=== PATIENT | female | born 1975 | race Caucasian/White ===

== ENCOUNTER 2017-04-21 12:47 | Emergency (ER) | payer OTHER ==
[~2017-04-21] VITALS: Ht 162.5 cm; Wt 49.9 kg
[~2017-04-21 12:47] MED LIST: AMOXICILLIN500 MG PO; ATARAX,VISTARIL50 MG PO; BACTRIM DS 8001 TA1 PO; BACTRIM DS 8001 TAB PO; BUSPAR5 MG PO; CARBIDOPA/LEVOD1 TA1 PO; CLINDAMYCIN HC300 MG PO; DIFLUCAN150 MG PO; FLONASE 0.05% 121 EA NAS; HYDROXYZINE PAM50 MG PO; LITHIUM CARBON300 MG PO; LITHIUM8 MEQ/5 ML PO; MOTRIN800 MG PO; ONDANSETRON HYDR4 M1 PO; PROZAC10 MG PO; PROZAC40 M1 PO; PYRIDIUM200 MG PO; SEROQUEL XR300 MG PO; SEROQUEL XR400 MG PO; SEROQUEL XR50 MG PO; SEROQUEL300 MG PO; SEROQUEL50 MG PO; SERTRALINE HYDR50 MG PO; ULTRAM50 MG PO; VICODIN 5/500 505 MG PO; ZOFRAN ODT4 MG SL; ZOFRAN4 MG PO
[2017-04-21 13:15] VITALS: BP 109/72
[2017-04-21] MEDS ORDERED: NEURONTIN300 MG PO (13:15)
[2017-04-21] MEDS ORDERED: ARIPIPRAZOLE15 MG PO (13:15)
== END 2017-04-21 13:36 | disposition left against medical advice (07) ==
LOC: ED 12:47
DX: R42 Dizziness and giddiness (principal); J02.9 Acute pharyngitis, unspecified; R51 Headache; Z53.21 Procedure and treatment not carried out due to patient leaving prior to being seen by health care provider

== ENCOUNTER 2017-08-17 20:01 | Emergency (ER) | payer OTHER ==
[~2017-08-17] VITALS: Ht 162.5 cm; Wt 59.0 kg
[~2017-08-17 20:01] MED LIST changes: +ARIPIPRAZOLE15 MG PO; +NEURONTIN300 MG PO
[2017-08-17 20:34] LABS: BASO % 0.4 % (0.0-1.0); EOS # 0.1 10*3/uL (0.0-0.4); EOS % 1.3 % (1.0-4.0); HEMATOCRIT 40.1 % (37.0-47.0); HEMOGLOBIN 12.5 g/dl (12.0-16.0); LYMPH # 2.5 10*3/uL (1.3-4.4); LYMPH % 23.9 % (27.0-41.0); MEAN CELL VOLUME 96.4 fl (81.0-99.0); MEAN CORPUSCULAR HGB CONC 31.2 g/dl (33.0-37.0); MEAN PLATELET VOLUME 9.5 fl (9.6-12.3); MONO # 0.6 10*3/uL (0.1-1.0); MONO % 5.7 % (3.0-9.0); NEUT # 7.1 10*3/uL (2.3-7.9); NEUT % 68.5 % (47.0-73.0); PLATELET COUNT AUTOMATED 323 10*3/uL (130-400); RED BLOOD COUNT 4.16 10*6/uL (4.10-5.10); RED CELL DISTRI WIDTH 13.9 % (0-14.5); WHITE BLOOD COUNT 10.4 10*3/uL (4.8-10.8)
[2017-08-17 20:49] LABS: ALBUMIN 3.5 gm/dl (3.1-4.5); ALKALINE PHOSPHATASE 75 U/L (45-117); BUN 7 mg/dl (7-24); CHLORIDE 106 mmol/L (98-107); POTASSIUM 4.4 mmol/L (3.5-5.1); SGOT/AST 11 IU/L (3-35); SGPT/ALT 10 U/L (12-78); SODIUM 141 mmol/L (136-145); TOTAL PROTEIN 7.4 gm/dL (6.4-8.2)
[2017-08-17 22:02] VITALS: BP 108/57
[2017-08-17] MEDS ORDERED: CLINDAMYCIN HC300 MG PO (23:03)
== END 2017-08-17 23:03 | disposition left against medical advice (07) ==
LOC: ED 20:01
PROVIDERS: Emergency Medicine
DX: L03.211 Cellulitis of face (principal); K04.7 Periapical abscess without sinus; E03.9 Hypothyroidism, unspecified; M06.9 Rheumatoid arthritis, unspecified; F17.200 Nicotine dependence, unspecified, uncomplicated; F14.10 Cocaine abuse, uncomplicated; F11.10 Opioid abuse, uncomplicated; Z88.5 Allergy status to narcotic agent; Z88.8 Allergy status to other drugs, medicaments and biological substances; Z88.6 Allergy status to analgesic agent; Z79.899 Other long term (current) drug therapy

== ENCOUNTER → 2018-08-20 | Outpatient (CLI) | payer OTHER ==
[~2018-08-20] MED LIST changes: +IBUPROFEN600 MG PO; +NAPROSYN500 MG PO; +PENICILLIN VK500 MG PO
[2018-08-20 13:11] LABS: BASO % 0.3 % (0.0-1.0); EOS # 0.1 10*3/uL (0.0-0.4); EOS % 0.5 % (1.0-4.0); HEMATOCRIT 38.7 % (37.0-47.0); HEMOGLOBIN 12.3 g/dl (12.0-16.0); LYMPH # 1.3 10*3/uL (1.3-4.4); LYMPH % 12.1 % (27.0-41.0); MEAN CELL VOLUME 96.3 fl (81.0-99.0); MEAN CORPUSCULAR HGB 30.6 pg (27.0-31.0); MEAN CORPUSCULAR HGB CONC 31.8 g/dl (33.0-37.0); MEAN PLATELET VOLUME 9.8 fl (9.6-12.3); MONO # 0.4 10*3/uL (0.1-1.0); MONO % 3.4 % (3.0-9.0); NEUT # 8.6 10*3/uL (2.3-7.9); NEUT % 83.4 % (47.0-73.0); PLATELET COUNT AUTOMATED 256 10*3/uL (130-400); RED BLOOD COUNT 4.02 10*6/uL (4.10-5.10); RED CELL DISTRI WIDTH 13.5 % (0-14.5); WHITE BLOOD COUNT 10.3 10*3/uL (4.8-10.8)
[2018-08-20 13:38] LABS: ALBUMIN 3.7 gm/dl (3.1-4.5); ALKALINE PHOSPHATASE 69 U/L (45-117); BUN 10 mg/dl (7-24); CHLORIDE 109 mmol/L (98-107); CREATININE 0.71 mg/dL (0.55-1.02); POTASSIUM 3.8 mmol/L (3.5-5.1); SGOT/AST 15 IU/L (3-35); SGPT/ALT 17 U/L (12-78); SODIUM 144 mmol/L (136-145); TOTAL PROTEIN 7.1 gm/dL (6.4-8.2)
[2018-08-20 13:46] LABS: THYROID STIM HORMONE (HS) 0.697 uIU/ml (0.358-4.75); THYROXINE (T4) TOTAL 7.1 ug/dl (4.8-13.9)
[2018-08-21 05:06] LABS: HEPATITIS B SURFACE AG Negative (Negative); HEPATITIS C VIRUS ANTIBODY 6.2 s/co (0.0-0.9)
== END | disposition home or self-care (01) ==
LOC: LAB 12:15
PROVIDERS: Nurse Practitioner Family
DX: E03.8 Other specified hypothyroidism (principal); F11.10 Opioid abuse, uncomplicated

== ENCOUNTER 2019-06-24 12:08 | Emergency (ER) | payer OTHER ==
[~2019-06-24] VITALS: Ht 162.5 cm; Wt 59.0 kg
[2019-06-24] MEDS ORDERED: Motrin,Rufen800 MG PO (13:34)
== END 2019-06-24 12:36 | disposition home or self-care (01) ==
LOC: ED 12:08
DX: M25.511 Pain in right shoulder (principal); Z88.5 Allergy status to narcotic agent; Z88.8 Allergy status to other drugs, medicaments and biological substances; Z79.899 Other long term (current) drug therapy; Z79.2 Long term (current) use of antibiotics

== ENCOUNTER 2019-09-24 22:00 | Emergency (ER) | payer OTHER ==
[~2019-09-24 22:00] MED LIST changes: +Motrin,Rufen800 MG PO
[2019-09-24 22:12] VITALS: BP 140/86
== END 2019-09-24 22:45 | disposition home or self-care (01) ==
LOC: ED 22:00
DX: B34.9 Viral infection, unspecified (principal); F42.4 Excoriation (skin-picking) disorder; Z88.8 Allergy status to other drugs, medicaments and biological substances; Z88.5 Allergy status to narcotic agent

== ENCOUNTER 2019-10-18 21:34 | Emergency (ER) | payer OTHER ==
[~2019-10-18] VITALS: Ht 162.5 cm; Wt 56.7 kg
[2019-10-18 21:48] VITALS: BP 123/76
[2019-10-18] MEDS ORDERED: FLUOXETINE HYDR20 M1 PO (21:49)
[2019-10-18] MEDS ORDERED: TRAZODONE100 MG PO (21:49)
[2019-10-18] MEDS ORDERED: OXCARBAZEPINE300 M1 PO (21:50)
[2019-10-18] MEDS ORDERED: IBUPROFEN600 MG PO (22:17)
[2019-10-18] MEDS ORDERED: DOXYCYCLINE100 M3 PO (22:17)
== END 2019-10-18 22:37 | disposition home or self-care (01) ==
LOC: ED 21:34
DX: L02.411 Cutaneous abscess of right axilla (principal); L73.2 Hidradenitis suppurativa

== ENCOUNTER 2020-01-01 08:35 | Emergency (ER) | payer OTHER ==
[~2020-01-01] VITALS: Ht 162.5 cm; Wt 56.7 kg
[~2020-01-01 08:35] MED LIST changes: +DOXYCYCLINE100 M3 PO; +FLUOXETINE HYDR20 M1 PO; +OXCARBAZEPINE300 M1 PO; +TRAZODONE100 MG PO
[2020-01-01 08:42] VITALS: BP 137/78
[2020-01-01] MEDS ORDERED: AMOXICILLIN500 M2 PO (09:09)
[2020-01-01] MEDS ORDERED: Motrin,Rufen800 MG PO (09:09)
[2020-01-01] MEDS ORDERED: CLINDAMYCIN HC300 MG PO (09:09)
== END 2020-01-01 09:33 | disposition home or self-care (01) ==
LOC: ED 08:35
DX: K04.7 Periapical abscess without sinus (principal); L02.412 Cutaneous abscess of left axilla; J32.9 Chronic sinusitis, unspecified; K21.9 Gastro-esophageal reflux disease without esophagitis; F32.9 Major depressive disorder, single episode, unspecified; G43.909 Migraine, unspecified, not intractable, without status migrainosus; Z88.8 Allergy status to other drugs, medicaments and biological substances; Z79.899 Other long term (current) drug therapy

== ENCOUNTER → 2020-03-06 | Outpatient (CLI) | payer OTHER ==
[~2020-03-06] MED LIST changes: +AMOXICILLIN500 M2 PO
== END | disposition home or self-care (01) ==
LOC: COVID19 11:28
PROVIDERS: ATTEND Student in an Organized Health Care Education/Training Program
DX: U07.1 COVID-19 (principal)

== ENCOUNTER 2020-04-20 08:46 | Emergency (ER) | payer OTHER ==
[~2020-04-20] VITALS: Wt 61.2 kg
[2020-04-20 08:59] VITALS: BP 141/76
[2020-04-20] MEDS ORDERED: IBUPROFEN600 MG PO (09:36)
[2020-04-20] MEDS ORDERED: SEPTDS PO (09:36)
[2020-04-20] MEDS ORDERED: FLONASE ALLERG9.9 ML NAS (09:36)
== END 2020-04-20 10:03 | disposition home or self-care (01) ==
LOC: ED 08:46
DX: J32.9 Chronic sinusitis, unspecified (principal); K21.9 Gastro-esophageal reflux disease without esophagitis; G43.909 Migraine, unspecified, not intractable, without status migrainosus; F31.9 Bipolar disorder, unspecified; F17.200 Nicotine dependence, unspecified, uncomplicated; Z88.8 Allergy status to other drugs, medicaments and biological substances; Z98.890 Other specified postprocedural states

== ENCOUNTER → 2020-04-27 | Outpatient (CLI) | payer OTHER ==
[~2020-04-27] MED LIST changes: +FLONASE ALLERG9.9 ML NAS; +SEPTDS PO
== END | disposition home or self-care (01) ==
LOC: COVID19 10:40
PROVIDERS: ATTEND Internal Medicine
DX: Z20.822 Contact with and (suspected) exposure to COVID-19 (principal)

== ENCOUNTER 2020-05-18 09:23 | Emergency (ER) | payer OTHER ==
[~2020-05-18] VITALS: Ht 160 cm; Wt 63.5 kg
[2020-05-18 09:28] VITALS: BP 131/82
[2020-05-18] MEDS ORDERED: CLINDAMYCIN HC300 MG PO (09:48)
== END 2020-05-18 09:50 | disposition home or self-care (01) ==
LOC: ED 09:23
DX: K04.7 Periapical abscess without sinus (principal); F17.200 Nicotine dependence, unspecified, uncomplicated; F14.10 Cocaine abuse, uncomplicated; Z90.710 Acquired absence of both cervix and uterus; Z98.890 Other specified postprocedural states; Z88.5 Allergy status to narcotic agent; Z88.6 Allergy status to analgesic agent; Z88.8 Allergy status to other drugs, medicaments and biological substances

== ENCOUNTER 2020-07-13 08:52 | Emergency (ER) | payer OTHER ==
[~2020-07-13] VITALS: Ht 160 cm; Wt 59.0 kg
[2020-07-13 08:56] VITALS: BP 127/81
[2020-07-13] MEDS ORDERED: FLONASE ALLERG9.9 ML NAS (09:11)
[2020-07-13] MEDS ORDERED: AUGMENTIN 875875 MG PO (09:11)
== END 2020-07-13 09:18 | disposition home or self-care (01) ==
LOC: ED 08:52
DX: J32.1 Chronic frontal sinusitis (principal); Z20.822 Contact with and (suspected) exposure to COVID-19; J32.0 Chronic maxillary sinusitis; H92.02 Otalgia, left ear; F17.200 Nicotine dependence, unspecified, uncomplicated; Z88.8 Allergy status to other drugs, medicaments and biological substances; Z88.1 Allergy status to other antibiotic agents; Z88.5 Allergy status to narcotic agent; Z79.899 Other long term (current) drug therapy; Z79.2 Long term (current) use of antibiotics; Z90.89 Acquired absence of other organs; Z90.711 Acquired absence of uterus with remaining cervical stump

== ENCOUNTER 2020-11-03 21:41 | Emergency (ER) | payer MEDICAID ==
[~2020-11-03] VITALS: Ht 160 cm; Wt 59.0 kg
[~2020-11-03 21:41] MED LIST changes: +AUGMENTIN 875875 MG PO
[2020-11-03 22:28] VITALS: BP 111/68
== END 2020-11-04 00:30 | disposition left against medical advice (07) ==
LOC: ED 21:41
DX: R09.81 Nasal congestion (principal); Z53.21 Procedure and treatment not carried out due to patient leaving prior to being seen by health care provider

== ENCOUNTER 2022-12-16 17:52 | Emergency (ER) | payer SELFPAY ==
[~2022-12-16] VITALS: Wt 56.7 kg
[2022-12-16 17:58] VITALS: BP 126/90
[2022-12-16] MEDS ORDERED: SEPTDS PO (18:39)
== END 2022-12-16 20:03 | disposition home or self-care (01) ==
LOC: ED 17:52
DX: S93.402A Sprain of unspecified ligament of left ankle, initial encounter (principal); L03.011 Cellulitis of right finger; S09.90XA Unspecified injury of head, initial encounter; K21.9 Gastro-esophageal reflux disease without esophagitis; M79.7 Fibromyalgia; G43.909 Migraine, unspecified, not intractable, without status migrainosus; F31.9 Bipolar disorder, unspecified; Z88.5 Allergy status to narcotic agent; Z88.8 Allergy status to other drugs, medicaments and biological substances; Z88.6 Allergy status to analgesic agent; Z90.89 Acquired absence of other organs; Z90.710 Acquired absence of both cervix and uterus; Z98.890 Other specified postprocedural states; F14.10 Cocaine abuse, uncomplicated; F17.200 Nicotine dependence, unspecified, uncomplicated; F11.10 Opioid abuse, uncomplicated; F13.10 Sedative, hypnotic or anxiolytic abuse, uncomplicated; W17.89XA Other fall from one level to another, initial encounter; Y93.89 Activity, other specified; Y92.89 Other specified places as the place of occurrence of the external cause; Y99.8 Other external cause status

== ENCOUNTER → 2023-01-06 | Outpatient (CLI) | payer OTHER | END | disposition home or self-care (01) | LOC: ORTHO 03:05 | PROVIDERS: ATTEND Orthopaedic Surgery | DX: M25.562 Pain in left knee (principal); R22.42 Localized swelling, mass and lump, left lower limb ==

== ENCOUNTER 2024-02-15 01:45 | Emergency (ER) | payer OTHER ==
[~2024-02-15] VITALS: Ht 160 cm; Wt 51.4 kg
[2024-02-15 01:56] VITALS: BP 113/68
[2024-02-15 02:19] LABS: BASO % 0.2 % (0.0-1.0); EOS # 0.1 10*3/uL (0.0-0.4); EOS % 0.7 % (1.0-4.0); HEMATOCRIT 37.4 % (37.0-47.0); MEAN CELL VOLUME 97.1 fl (81.0-99.0); MEAN CORPUSCULAR HGB 30.6 pg (27.0-31.0); MEAN CORPUSCULAR HGB CONC 31.6 g/dl (33.0-37.0); MEAN PLATELET VOLUME 8.5 fl (9.6-12.3); MONO # 0.8 10*3/uL (0.1-1.0); MONO % 5.1 % (3.0-9.0); NEUT # 11.2 10*3/uL (2.3-7.9); NEUT % 74.4 % (47.0-73.0); PLATELET COUNT AUTOMATED 455 10*3/uL (130-400); RED BLOOD COUNT 3.85 10*6/uL (4.10-5.10); RED CELL DISTRI WIDTH 12.4 % (0-14.5)
[2024-02-15 02:47] LABS: BUN 7 mg/dl (9-23); CHLORIDE 104 mmol/L (98-107); POTASSIUM 4.5 mmol/L (3.4-5.1)
[2024-02-15] MEDS ORDERED: MEDROL DOSEPAK4 MG PO (02:54)
[2024-02-15] MEDS ORDERED: AMOX-CLAV 875-1 EACH PO (02:54)
== END 2024-02-15 03:05 | disposition home or self-care (01) ==
LOC: ED 01:45
PROVIDERS: Internal Medicine
DX: J18.9 Pneumonia, unspecified organism (principal); K21.9 Gastro-esophageal reflux disease without esophagitis; G43.909 Migraine, unspecified, not intractable, without status migrainosus; M79.7 Fibromyalgia; F31.9 Bipolar disorder, unspecified; F17.200 Nicotine dependence, unspecified, uncomplicated; F14.10 Cocaine abuse, uncomplicated; F13.10 Sedative, hypnotic or anxiolytic abuse, uncomplicated; F11.90 Opioid use, unspecified, uncomplicated; Z88.5 Allergy status to narcotic agent; Z88.6 Allergy status to analgesic agent; Z88.8 Allergy status to other drugs, medicaments and biological substances; Z90.89 Acquired absence of other organs; Z98.890 Other specified postprocedural states

== ENCOUNTER 2024-08-05 20:31 | Emergency (ER) | payer OTHER ==
[~2024-08-05 20:31] MED LIST changes: +AMOX-CLAV 875-1 EACH PO; +MEDROL DOSEPAK4 MG PO
[2024-08-05 20:33] VITALS: BP 130/98
== END 2024-08-05 20:35 | disposition home or self-care (01) ==
LOC: ED 20:31
DX: Z02.89 Encounter for other administrative examinations (principal); K21.9 Gastro-esophageal reflux disease without esophagitis; G43.909 Migraine, unspecified, not intractable, without status migrainosus; F31.9 Bipolar disorder, unspecified; Z79.899 Other long term (current) drug therapy; Z88.1 Allergy status to other antibiotic agents; Z88.5 Allergy status to narcotic agent; Z88.8 Allergy status to other drugs, medicaments and biological substances; F14.10 Cocaine abuse, uncomplicated; F17.200 Nicotine dependence, unspecified, uncomplicated

== ENCOUNTER 2024-09-04 21:43 | Emergency (ER) | payer OTHER ==
[2024-09-04 23:33] LABS: URINE AMPHETAMINES Positive (1000ng/ml); URINE BARBITURATES Negative (200ng/ml); URINE BENZODIAZEPINES Negative (200ng/ml); URINE CANNABINOIDS (THC) Negative (50ng/ml); URINE COCAINE Negative (300ng/ml); URINE METHADONE Negative (300ng/ml); URINE OPIATES Negative (300ng/ml); URINE PHENCYCLIDINE Negative (25ng/ml)
[2024-09-05 02:44] VITALS: BP 97/48
== END 2024-09-05 02:45 | disposition home or self-care (01) ==
LOC: ED 21:43
PROVIDERS: Emergency Medicine
DX: T50.7X1A Poisoning by analeptics and opioid receptor antagonists, accidental (unintentional), initial encounter (principal); F14.10 Cocaine abuse, uncomplicated; F11.90 Opioid use, unspecified, uncomplicated; F17.200 Nicotine dependence, unspecified, uncomplicated; Z79.899 Other long term (current) drug therapy; Z88.5 Allergy status to narcotic agent; Z88.8 Allergy status to other drugs, medicaments and biological substances; Z90.89 Acquired absence of other organs; Z98.890 Other specified postprocedural states; Y92.89 Other specified places as the place of occurrence of the external cause

== ENCOUNTER 2024-12-12 16:56 | Emergency (ER) | payer OTHER ==
[~2024-12-12] VITALS: Ht 160 cm; Wt 45.4 kg
== END 2024-12-12 17:34 | disposition home or self-care (01) ==
LOC: ED 16:56
DX: R53.1 Weakness (principal); F11.90 Opioid use, unspecified, uncomplicated; F17.200 Nicotine dependence, unspecified, uncomplicated; Z88.8 Allergy status to other drugs, medicaments and biological substances; Z88.5 Allergy status to narcotic agent; Z79.899 Other long term (current) drug therapy; Z90.89 Acquired absence of other organs; Z98.890 Other specified postprocedural states